=== PATIENT | female | born 1960 | race Caucasian/White ===

== ENCOUNTER 2020-07-21 07:46 | Day surgery (SDC) | payer BC ==
[~2020-07-21 07:46] MED LIST: Lactated Ringers 1,000 ML IV SCH; Lidocaine 1%/Sod Bicarbonate in NS 8.4% 1 ML Syringe IDERM PRN; Sodium Chloride 0.9% 10 ML Syringe FLUSH PRN
[2020-07-21] MEDS ORDERED: Scopolamine 1.5 MG Transdermal Patch TOP SCH (08:19)
--- NOTE | 2020-07-21 08:46 | PCM.PREANE ---
Preanesthetic Assessment - Procedure Proposed Procedure: Left radius hardware removal - Anesthesia/Transfusion/Family Hx Anesthesia History: Prior Anesthesia Reaction (Nausea) Family History of Anesthesia Reaction: No Transfusion History: No Prior Transfusion(s) - Review of Systems General: No Symptoms Pulmonary: No Symptoms, Cough (productive smokers cough at night) Cardiovascular: No Symptoms Gastrointestinal: No Symptoms Neurological: No Symptoms Other: Reports: None - Physical Assessment NPO Status Date: 07/20/20 NPO Status Time: 00:00 Vital Signs: Last Vital Signs Temp 36.2 C 07/21/20 07:45 Pulse 75 07/21/20 07:45 Resp 18 07/21/20 07:45 BP 145/80 H 07/21/20 07:45 Pulse Ox 98 07/21/20 07:45 Height: 1.83 m Weight: 85.729 kg ASA Class: 2 Mental Status: Alert & Oriented x3 Airway Class: Mallampati = 1 Dentition: Reports: [place](s) Thyro-Mental Finger Breadths: 3 Mouth Opening Finger Breadths: 3 ROM/Head Extension: Full Lungs: Clear to Auscultation, Normal Respiratory Effort Cardiovascular: Regular Rate, Regular Rhythm - Allergies Allergies/Adverse Reactions: Allergies Allergy/AdvReac Type Severity Reaction Status Date / Time No Known Allergies Allergy Verified 07/20/20 14:50 - Anesthesia Plan Pre-Op Medication Ordered: None - Acknowledgements Anesthesia Type Planned: General Anesthesia Pt an Appropriate Candidate for the Planned Anesthesia: Yes Alternatives and Risks of Anesthesia Discussed w Pt/Guardian: Yes Pt/Guardian Understands and Agrees with Anesthesia Plan: Yes PreAnesthesia Questionnaire HEENT History: Reports: None Cardiovascular History: Reports: Hypertension Respiratory History: Reports: None Gastrointestinal History: Reports: None, GERD Genitourinary History: Reports: None LDR NURSE History: Reports: None Neurological History: Reports: None Psychiatric History: Reports: None Endocrine/Metabolic History: Reports: None Hematologic History: Reports: None Immunologic History: Reports: None Dermatologic History: Reports: None - Infectious Disease History Infectious Disease History: Reports: None - Past Surgical History Head Surgeries/Procedures: Reports: None HEENT Surgical History: Reports: None Cardiovascular Surgical History: Reports: None GI Surgical History: Reports: None Female Surgical History: Reports: Hysterectomy Male Surgical History: Reports: None Endocrine Surgical History: Reports: None Neurological Surgical History: Reports: None Musculoskeletal Surgical History: Reports: Other (See Below) Other Musculoskeletal Surgeries/Procedures:: left wrist fracture surgery with repair Oncologic Surgical History: Reports: Lumpectomy Dermatological Surgical History: Reports: None - SUBSTANCE USE Tobacco Use Status *Q: Current Every Day Tobacco User Tobacco Use Within Last Twelve Months: Cigarettes Second Hand Smoke Exposure: Yes Days Per Week of Alcohol Use: 0 Number of Drinks Per Day: 0 Total Drinks Per Week: 0 Recreational Drug Use History: No - HOME MEDS Home Medications: Home Meds Acetaminophen [Tylenol Extra Strength] 1,000 mg PO Q6HR PRN 07/20/20 [History] lisinopriL [Lisinopril] 10 mg PO DAILY 07/20/20 [History] Acetaminophen/HYDROcodone [Flushing 325-5 MG] 1 - 2 tab PO Q6H PRN #15 tablet 07/21/20 [Rx] - CURRENT (IN HOUSE) MEDS Current Meds: Current Medications Lactated Ringer's (Ringers, Lactated) 1,000 mls @ 125 mls/hr IV ASDIRECTED DREAD Stop: 07/21/20 23:00 Last Admin: 07/21/20 08:00 Dose: 125 mls/hr Documented by: Lidocaine/Sodium Bicarbonate (Buffered Lidocaine 1% In Ns 8.4%) 0.25 ml IDERM ONETIME PRN PRN Reason: Prior to IV Start Stop: 07/21/20 18:00 Last Admin: 07/21/20 08:09 Dose: 0.25 ml Documented by: Scopolamine (Transderm-Scop) 1.5 mg TOP ONETIME DREAD Stop: 07/21/20 12:00 Sodium Chloride (Saline Flush) 10 ml FLUSH ASDIRECTED PRN PRN Reason: Keep Vein Open Stop: 07/21/20 18:00
[2020-07-21] MEDS ORDERED: fentaNYL 250 MCG/5 ML SDV ONE (09:16)
[2020-07-21] MEDS ORDERED: Propofol 200 MG/20 ML SDV ONE ×5 (09:16→10:27)
[2020-07-21] MEDS ORDERED: Midazolam 1 MG/ML 2 ML SDV ONE (09:16)
[2020-07-21] MEDS ORDERED: Ondansetron 4 MG/2 ML SDV ONE (09:16)
[2020-07-21] MEDS ORDERED: Lidocaine 1% 4 ML ONE (09:17)
[2020-07-21] MEDS ORDERED: Bupivacaine 0.25% 10 ML SDV ONE (09:28)
[2020-07-21] MEDS ORDERED: Lactated Ringers 1,000 ML ONE (09:58)
[2020-07-21] MEDS ORDERED: Ketorolac 30 MG/ML SDV IVPUSH ONE (11:30)
[2020-07-21] MEDS ORDERED: Acetaminophen/HYDROcodone 325-5 MG Tab PO PRN (11:45)
--- NOTE | 2020-07-21 12:28 | PCM48HPAN ---
Post Anesthesia Note - EVALUATION WITHIN 48HRS OF ANESTHETIC Vital Signs in Normal Range: Yes Patient Participated in Evaluation: Yes Respiratory Function Stable: Yes Airway Patent: Yes Cardiovascular Function Stable: Yes Hydration Status Stable: Yes Pain Control Satisfactory: Yes Nausea and Vomiting Control Satisfactory: Yes Mental Status Recovered: Yes Vital Signs: Last Vital Signs Temp 36.2 C 07/21/20 07:45 Pulse 75 07/21/20 07:45 Resp 18 07/21/20 07:45 BP 145/80 H 07/21/20 07:45 Pulse Ox 98 07/21/20 07:45
--- NOTE | 2020-07-21 12:44 | CR ---
PROCEDURE INFORMATION: Exam: [place] Fluoroscopy, Up to 1 Hour Physician Time; Radiologist Not Present For Fluoroscopy Exam date and time: 07/21/2020 11:25 AM Age: 59 years old Clinical indication: Device placement; Prior surgery; Surgery date: 6+ months; Surgery type: Hardware removal TECHNIQUE: Imaging protocol: Fluoroscopy , up to 1 hour physician or other qualified health medical care manager time. This radiologist did not supervise this procedure. Exam supervised by facility personnel. Report for radiation dosage reporting and documentation only. COMPARISON: No relevant prior studies available. RADIATION DOSE METRICS: Fluoroscopy time (seconds): 2.3 seconds Number of fluoro spot images: 1 Reference air kerma (CRYSTAL): 0.09 mGy. FINDINGS: Procedural imaging: A single AP view of the distal left forearm is presented. There are ghost tracks within the distal left radius. No acute fracture or malalignment. Notes: Fluoroscopy supervised by facility personnel. See also separate procedure report. IMPRESSION: Fluoroscopy dosage documentation. See also separate procedure notes. Thank you for allowing us to participate in the care of your patient. Dictated and Authenticated by: Farhan Mendez MD 07/21/2020 12:12 PM Central Time ([place] & [place]) MARCUS
--- NOTE | 2020-07-21 13:30 | PCM.POSTAN ---
POST ANESTHESIA ASSESSMENT - MENTAL STATUS Mental Status: Alert, Oriented - VITAL SIGNS Vital Signs: Last Vital Signs Temp 36.4 C 07/21/20 12:10 Pulse 67 07/21/20 12:10 Resp 14 07/21/20 12:10 BP 143/85 H 07/21/20 12:10 Pulse Ox 98 07/21/20 12:10 - RESPIRATORY Respiratory Status: Respiratory Rate WNL, Airway Patent, O2 Saturation Stable - CARDIOVASCULAR CV Status: Pulse Rate WNL, Blood Pressure Stable - GASTROINTESTINAL GI Status: No Symptoms - PAIN Pain Score: 0 - POST OP HYDRATION Hydration Status: Adequate & Stable - OBSERVATIONS Free Text/Narrative:: no anesthesia complications noted
--- NOTE | 2020-08-01 07:42 | PCM.OPNOTE ---
- General Post-Op/Procedure Note Date of Surgery/Procedure: 07/21/20 Operative Procedure(s): left radius deep hardware removal Pre Op Diagnosis: left wrist painful hardware Post-Op Diagnosis: Same Anesthesia Technique: General LMA, Local Primary Surgeon: Raymon Yo Anesthesia Provider: Joselito Card [employer]id Cleaning Cooking: Nicky Carmona in mLs: 5 Complications: None Condition: Good
--- NOTE | 2020-08-05 13:02 | OR ---
DATE OF OPERATION: 07/21/2020 SURGEON: Raymon Yo MD OPERATION PERFORMED: Left radius deep hardware removal. PREOPERATIVE DIAGNOSIS: Left wrist painful hardware. POSTOPERATIVE DIAGNOSIS: Left wrist painful hardware. ANESTHESIA: General LMA with local. ANESTHESIA PROVIDER: Joselito Card CRNA SEMICONDUCTOR BONDER: Nicky Carmona PA-C ESTIMATED BLOOD LOSS: Less than 5 mL. COMPLICATIONS: None. CONDITION: Stable. DESCRIPTION OF PROCEDURE: The patient was identified in the preoperative holding area. Proper site was marked and identified by the surgeon. The patient was taken back to the operating theater, where after adequate anesthesia, a nonsterile tourniquet was applied to the left upper extremity. The left upper extremity was then sterilely prepped and draped in the usual sterile fashion. OR time-out was performed. The patient received 2 g IV Ancef. Left upper extremity was exsanguinated. Tourniquet was insufflated to 220 mmHg. The previous incision over the volar aspect of the left distal radius was utilized. Care was taken down to the FCR tendon. The FCR tendon was then retracted ulnarly with the median nerve. The patient was noted to have a large amount of scar tissue noted around the plate. At this time, small osteotomes as well as rongeurs and curettes were used to remove any bone from bony overgrowth around the plate or in the screw holes. Then, at this time, all screws were removed and the plate was removed. All bony prominences were rongeured and rasped down to a smooth surface. Adequate saline was irrigated through previous screw holes. 2-0 Vicryl was used subcutaneously. Monocryl was used for closure of the skin. The patient was placed in a sterile soft dressing and a splint and sent to the PACU in stable condition. MMODAL /[id number]
== END 2020-07-21 12:35 | disposition home or self-care (01) ==
LOC: JD.SDS 07:46
PROVIDERS: ATTEND Orthopaedic Surgery
DX: T84.84XA Pain due to internal orthopedic prosthetic devices, implants and grafts, initial encounter (principal); I10 Essential (primary) hypertension; F17.210 Nicotine dependence, cigarettes, uncomplicated; K21.9 Gastro-esophageal reflux disease without esophagitis; Z79.899 Other long term (current) drug therapy; Z98.890 Other specified postprocedural states
CPT/HCPCS: 20680; 76000; A9270; J1885; J2001; J2250; J2405; J2704; J3010; J3490; J7120; 01830